=== PATIENT | male | born 2000 | race Hispanic/Latino ===

== ENCOUNTER 2024-09-18 10:10 | Emergency (ER) | payer SELFPAY ==
[2024-09-18] MEDS ORDERED: Acetaminophen 500 MG TAB ONE (11:16)
[2024-09-18] MEDS ORDERED: Ketorolac Tromethamine 30 MG (1 mL) VIAL ONE (11:57)
[2024-09-18] MEDS ORDERED: Dexamethasone 10 MG/ML VIAL ONE (12:01)
== END 2024-09-18 12:41 | disposition home or self-care (01) ==
LOC: ERS 10:10
DX: J10.1 Influenza due to other identified influenza virus with other respiratory manifestations (principal)
CPT/HCPCS: 87081; 87428; 87430; 96372; 96374; J1100; J1885